=== PATIENT | female | born 1980 ===

== ENCOUNTER 2017-09-01 12:53 | Emergency (ER) | payer OTHER ==
[2017-09-01] MEDS ORDERED: ZOFRAN ONE (13:03)
[2017-09-01 13:06] VITALS: BP 124/86
[2017-09-01] MEDS ORDERED: ZOFRAN IV ONE (13:06)
[2017-09-01 13:30] LABS: Eosinophils # (Auto) 0.2 K/mm3 (0.0-0.4); Eosinophils % (Auto) 3.2 % (0.0-4.3); Hematocrit 38.4 % (30.3-42.9); Hemoglobin 12.9 gm/dl (10.1-14.3); Lymphocytes # (Auto) 1.7 K/mm3 (1.2-5.4); Lymphocytes % (Auto) 33.1 % (13.4-35.0); Mean Corpuscular HGB Conc 34 % (30-34); Mean Corpuscular Hemoglobin 29 pg (28-32); Mean Corpuscular Volume 85 fl (79-97); Monocytes # (Auto) 0.4 K/mm3 (0.0-0.8); Monocytes % (Auto) 8.2 % (0.0-7.3); Platelet Count 124 K/mm3 (140-440); Red Blood Count 4.55 M/mm3 (3.65-5.03); Red Cell Distribution Width 13.8 % (13.2-15.2)
[2017-09-01 13:37] LABS: BUN/Creatinine Ratio 10; Blood Urea Nitrogen 5 mg/dL (7-17); Calcium 9.2 mg/dL (8.4-10.2); Hemolysis Index 1
--- NOTE | 2017-09-01 14:45 | Emergency Department Report ---
History of Present Illness - General Chief Complaint: Overdose Stated Complaint: DRUG OVERDOSE Time Seen by Provider: 09/01/17 13:20 Source: patient Mode of arrival: Ambulatory Limitations: No Limitations - History of Present Illness Initial Comments: Patient is a 37-year-old female with a long history of methamphetamine use that presents to the emergency room with complaints of abdominal cramps and chest pain and shortness of breath. Patient states she was seen at another hospital 2 days ago, but does not know the name of the hospital, for meth overdose. Patient states that she has not used since then and is getting ready to go to rehabilitation. Patient states that the pain is bilateral chest and is worse with movement and deep breath and palpation. Patient states that the shortness of breath is worse with exertion. Patient describes the abdominal pain is cramping in nature and patient states that she believes is secondary to the Narcan and charcoal given at the previous hospital. Pain in chest is a 4 out of 10. Pain in abdomen as a 1 out of 10. Patient states she was treated in the emergency room another hospital 2 days ago and discharged home. Patient complains of anxiety. -: Sudden Associated Symptoms: shortness of breath Treatments Prior to Arrival: narcan, activated charcoal - Related Data Previous Rx's Medication Instructions Recorded Last Taken Type oxyCODONE /ACETAMINOPHEN [Percocet 1 tab PO Q6HR PRN #14 tablet 10/15/14 Unknown Rx 5/325] Allergies Allergy/AdvReac Type Severity Reaction Status Date / Time cefaclor [From [facility]] Allergy Rash Verified 10/02/14 12:23 Penicillins Allergy Itching Verified 08/01/14 07:44 ED Review of Systems ROS: Stated complaint: DRUG OVERDOSE Other details as noted in HPI Comment: All other systems reviewed and negative Constitutional: denies: chills, fever Eyes: denies: eye pain, eye discharge, vision change ENT: denies: ear pain, throat pain Respiratory: shortness of breath, SOB with exertion, SOB at rest. denies: cough , wheezing Cardiovascular: chest pain, palpitations Endocrine: no symptoms reported Gastrointestinal: abdominal pain. denies: nausea, diarrhea Genitourinary: denies: urgency, dysuria, discharge Musculoskeletal: denies: back pain, joint swelling, arthralgia Skin: denies: rash, lesions Neurological: denies: headache, weakness, paresthesias Psychiatric: denies: anxiety, depression Hematological/Lymphatic: denies: easy bleeding, easy bruising ED Past Medical Hx - Past Medical History Previous Medical History?: Yes Hx Hypertension: Yes Hx Congestive Heart Failure: No Hx Diabetes: No Hx Seizures: Yes Hx Psychiatric Treatment: Yes (anxiety) Hx Asthma: No Hx COPD: No - Surgical History Past Surgical History?: Yes Additional Surgical History: Breast augmentation. Tubal ligation - Family History Family history: hypertension - Social History Smoking Status: Current Every Day Smoker Substance Use Type: Cocaine, Prescribed, Methamphetamines - Medications Home Medications: Home Medications Medication Instructions Recorded Confirmed Last Taken Type oxyCODONE /ACETAMINOPHEN [Percocet 1 tab PO Q6HR PRN #14 tablet 10/15/14 Unknown Rx 325] ED Physical Exam - General Limitations: No Limitations General appearance: alert, in no apparent distress, lethargic - Head Head exam: Present: atraumatic, normocephalic - Eye Eye exam: Present: normal appearance - ENT ENT exam: Present: mucous membranes moist - Neck Neck exam: Present: normal inspection - Respiratory Respiratory exam: Present: normal lung sounds bilaterally, chest wall tenderness. Absent: respiratory distress - Cardiovascular Cardiovascular Exam: Present: regular rate, normal rhythm. Absent: systolic murmur, diastolic murmur, rubs, gallop - GI/Abdominal GI/Abdominal exam: Present: soft, normal bowel sounds - Extremities Exam Extremities exam: Present: normal inspection - Back Exam Back exam: Present: normal inspection, full ROM - Neurological Exam Neurological exam: Present: alert, oriented X3, other (patient is lethargic but arousable and answers all questions appropriately.) - Psychiatric Psychiatric exam: Present: normal affect, normal mood - Skin Skin exam: Present: warm, dry, intact, normal color. Absent: rash ED Course Vital Signs 09/01/17 09/01/17 09/01/17 12:55 12:56 12:58 Temperature Pulse Rate 86 79 89 Respiratory 18 19 13 Rate Blood Pressure 99/77 124/86 O2 Sat by Pulse 100 Oximetry 09/01/17 13:00 Temperature 97.9 F Pulse Rate 106 H Respiratory 18 Rate Blood Pressure 124/86 O2 Sat by Pulse 100 Oximetry - Reevaluation(s) Reevaluation #1: Patient is a note 4. Patient is more awake. Patient is answering questions appropriately. Patient states that she wants to leave AMA. Risks discussed with patient. Patient voiced understanding of risks of leaving AMA. AMA signed... All results discussed with patient. 09/01/17 15:44 0 ED Medical Decision Making - Lab Data Result diagrams: 09/01/17 13:11 09/01/17 13:11 - EKG Data -: EKG Interpreted by Me EKG shows normal: sinus rhythm, axis, intervals, QRS complexes, ST-T waves Rate: normal - EKG Data Interpretation: no acute changes, normal EKG - Radiology Data Radiology results: report reviewed, image reviewed interpreted by me: No acute process - Medical Decision Making 37-year-old female that presented for chest pain and shortness of breath after overdosing 2 days ago. Patient is A&O 4. The plan was to admit patient to the hospital for further evaluation and rule out however patient left AMA - Differential Diagnosis cp. sob. acs. med reaction. Critical care attestation.: If time is entered above; I have spent that time in minutes in the direct care of this critically ill patient, excluding procedure time. ED Disposition Clinical Impression: Medication reaction, Chest pain, Shortness of breath Disposition: [id number] LEFT AGAINST MED ADVICE Is pt being admited?: No Does the pt Need Aspirin: No Referrals: PRIMARY CARE, [Primary Care Provider] - 3-5 Days Time of Disposition: 15:44
[2017-09-01 15:04] LABS: Bilirubin,Urine NEG (Negative); Blood,Urine NEG (Negative); Color,Urine Straw (Yellow); Mucus,Urine FEW /HPF; Protein,Urine <15 mg/dL mg/dL (Negative); Urobilinogen,Urine < 2.0 mg/dL (<2.0)
[2017-09-01 15:15] LABS: Cannabinoid Screen,Urine PRESUMPTIVE NEGATIVE; Methadone Screen,Urine PRESUMPTIVE NEGATIVE; Opiate Screen,Urine PRESUMPTIVE NEGATIVE
--- NOTE | 2017-09-01 15:23 | XRay Report ---
CHEST ONE VIEW INDICATION: Chest pain, shortness of breath. COMPARISON: 10/02/2014. FINDINGS: Portable, single, frontal chest radiograph demonstrates normal cardiomediastinal silhouette. Clear lungs. Unremarkable bones. Extrinsic EKG leads. CONCLUSION: No acute disease in the chest, stable. Thank you for the opportunity to participate in this patient's care.
[2017-09-01 15:25] LABS: Creatine Kinase MB 3.2 ng/mL (0.0-4.0)
[2017-09-01 15:26] LABS: Amphetamine Screen,Urine PRESUMPTIVE POSITIVE; Benzodiazepines Screen,Urine PRESUMPTIVE POSITIVE; Cocaine Screen,Urine PRESUMPTIVE POSITIVE
== END 2017-09-01 15:15 | disposition left against medical advice (07) ==
LOC: ED 12:53
DX: T65.91XA Toxic effect of unspecified substance, accidental (unintentional), initial encounter (principal); R07.9 Chest pain, unspecified; Y92.89 Other specified places as the place of occurrence of the external cause; R06.02 Shortness of breath; I10 Essential (primary) hypertension; F17.200 Nicotine dependence, unspecified, uncomplicated; F14.10 Cocaine abuse, uncomplicated
CPT/HCPCS: 36415; 71045; 80048; 80307; 81001; 82550; 82553; 84484; 85025; 85379; 93005; 93010; 96374; 99284; G0480; J2405; 80320